=== PATIENT | female | born 1980 | race American Indian/Alaskan Native ===

== ENCOUNTER 2017-12-07 12:57 | Emergency (ER) | payer MEDICAID, MEDICARE ==
[2017-12-07 13:07] VITALS: BMI 38.2
[2017-12-07 13:17] VITALS: TEMP 98.1
[2017-12-07 15:49] LABS: BASO # 0.1 K/uL (0.0-0.2); BASO % 1.3 % (0.0-2.0); EOS # 0.1 K/uL (0.0-0.7); EOS % 1.8 % (0.0-4.0); HEMOGLOBIN 12.1 g/dL (11.0-16.0); LYMPH # 1.5 K/uL (1.0-4.3); LYMPH % 25.8 % (20.0-40.0); MEAN CELL VOLUME 75.6 fL (81.0-99.0); MEAN CORPUSCULAR HEMOGLOBIN 24.3 pg (27.0-31.0); MEAN CORPUSCULAR HGB CONC 32.1 g/dL (33.0-37.0); MEAN PLATELET VOLUME 8.3 fL (7.2-11.7); MONO # 0.4 K/uL (0.0-0.8); MONO % 7.5 % (0.0-10.0); NEUT # 3.6 K/uL (1.8-7.0); NEUT % 63.6 % (50.0-75.0); RBC 4.97 Mil/uL (3.80-5.20); RED CELL DISTRIBUTION WIDTH 14.8 % (11.5-14.5); WHITE BLOOD COUNT 5.7 K/uL (4.8-10.8)
--- NOTE | 2017-12-07 15:52 | C.PDOC ---
History Of Present Illness Patient presents to ED c/o left sided chest pain/pressure, left arm sharp pain radiating to thumb, and left neck pain since yesterday. She denies SOB, cough, fever, abdominal pain, nausea/vomiting/diarrhea. Patient has PMHx of PCOS, malignant thymoma diagnosed approx 5 years ago s/p resection and radiation ( most recent surgery Oct 2017 - Lisa). Time Seen by Provider: 12/07/17 14:13 Chief Complaint (Nursing): Chest Pain History Per: Patient History/Exam Limitations: no limitations Onset/Duration Of Symptoms: Days Current Symptoms Are (Timing): Still Present Severity: Mild Quality: "Pain" Exacerbating Factors: Movement Past Medical History Reviewed: Historical Data, Nursing Documentation, Vital Signs Vital Signs: Last Vital Signs Temp 98.1 F 12/07/17 13:13 Pulse 90 12/07/17 13:13 Resp 18 12/07/17 13:13 BP 122/84 12/07/17 13:13 Pulse Ox 99 12/07/17 16:00 - Medical History Other PMH: PCOS, malignant thymoma Other Surgeries: sternotomy Family History: States: No Known Family Hx - Social History Hx Alcohol Use: No Hx Substance Use: No - Immunization History Hx Tetanus Toxoid Vaccination: No Hx Influenza Vaccination: Yes Hx Pneumococcal Vaccination: No Review Of Systems Except As Marked, All Systems Reviewed And Found Negative. Cardiovascular: Positive for: Chest Pain. Negative for: Palpitations Respiratory: Negative for: Cough, Shortness of Breath Gastrointestinal: Negative for: Nausea, Vomiting, Abdominal Pain Skin: Negative for: Rash Physical Exam - Physical Exam Appears: Well, Non-toxic, Other (in mild pain, speaking in full sentences ) Eye(s): bilateral: Normal Inspection Oral Mucosa: Moist Chest: Other (midline sternotomy scar) Cardiovascular: Rhythm Regular Respiratory: Normal Breath Sounds, No Rales, No Rhonchi, No Wheezing Gastrointestinal/Abdominal: Normal Exam, Bowel Sounds, Soft, No Tenderness Extremity: Normal ROM, No Pedal Edema, No Calf Tenderness, Other (left shoulder mild TTP at anterior aspect) Neurological/Psych: Oriented x3 ED Course And Treatment - Laboratory Results Result Diagrams: 12/07/17 15:43 12/07/17 15:43 O2 Sat by Pulse Oximetry: 99 Disposition Counseled Patient/Family Regarding: Diagnosis, Need For Followup, Rx Given - Disposition Referrals: [facility] [Outside] Disposition: HOME/ ROUTINE Disposition Time: 18:30 Condition: STABLE Additional Instructions: FOLLOW UP WITH YOUR DOCTOR IN 1-2 DAYS USE MEDICATION NEEDED RETURN TO ER IF SYMPTOMS WORSEN Prescriptions: RX: Cyclobenzaprine [Flexeril] 10 mg PO BID PRN #20 tab PRN Reason: Muscle Spasm Instructions: Radiculopathy (DC) Forms: [employer] (Swedish) Print Language: HONDURAN - POA Present On Arrival: None - Clinical Impression Clinical Impression: Cervical radiculopathy, Adrenal nodule
[2017-12-07 15:56] LABS: INR 1.1; PROTHROMBIN TIME 12.2 SECONDS (9.7-12.2)
[2017-12-07 16:01] LABS: ALB/GLOB RATIO 1.2 (1.0-2.1); ALBUMIN 4.1 g/dL (3.5-5.0); ALT/SGPT 17 U/L (9-52); AST/SGOT 17 U/L (14-36); BLOOD UREA NITROGEN 10 mg/dL (7-17); CALCIUM 9.2 mg/dl (8.6-10.4); GFR AFRICAN-AMERICAN > 60; GFR NON-AFRICAN AMERICAN > 60
[2017-12-07 16:15] LABS: CK-MB 0.36 ng/mL (0.0-3.38)
[2017-12-07] MEDS ORDERED: Iodixanol 320 MG/ML 100 ML BOTTLE IV ONE (16:25)
--- NOTE | 2017-12-07 18:21 | CT ---
PROCEDURE: CT Chest with contrast (Pulmonary Angiogram) HISTORY: Left-sided chest pain. History of malignancy ; rule out PE. COMPARISON: Comparison made with prior chest radiograph dated 11/18/2012. TECHNIQUE: Axial computed tomography images were obtained of the chest in the pulmonary arterial phase of enhancement. Coronal and sagittal reformatted images were created and reviewed. Intravenous contrast dose: 100 cc Visipaque 320 contrast material. Radiation dose: Total exam DLP = 502.25 mGy-cm. This CT exam was performed using one or more of the following dose reduction techniques: Automated exposure control, adjustment of the mA and/or kV according to patient size, and/or use of iterative reconstruction technique FINDINGS: PULMONARY ARTERIES: The at visualized pulmonary trunk, right and left main, lobar, segmental and proximal side segmental branches of the pulmonary arteries are well opacified with no definitive filling defects seen to suggest acute pulmonary embolus. Pulmonary trunk measures approximately 2.8 cm. AORTA: No acute findings. No thoracic aortic aneurysm. Ascending thoracic aorta measures approximately 2.9 cm and descending thoracic aorta measures approximately 2.4 cm. LUNGS: Postoperative changes left upper lung apex/ upper lobe abutting the left aspect of the upper mediastinum likely representing sequela of prior upper partial lobectomy. There is volume loss left godwin thorax compared the right side with areas of scarring/chronic atelectasis in the left medial upper lobe ; findings consistent with postsurgical sequela and probably sequela of radiotherapy. Linear areas of atelectasis/scarring seen in the left lung base and lingular region. There is a small approximately 3.9 mm nodule left lung apex seen on axial series 16.-17. Additionally, there is a tiny nodule measuring approximately 2.75 mm right lung apex seen on axial series 3 image number 21. Slight shift of the mediastinum from right to left. Follow-up CT scan in three months recommended to assess any changes. Elevation left hemidiaphragm felt to be postsurgical due to volume loss left hemithorax. There is mild compensatory hyperinflation right lung. PLEURAL SPACES: Unremarkable. No effusion or pneumothorax. HEART: Heart size borderline/mildly enlarged. . No significant pericardial effusion. LYMPH NODES: No significant mediastinal or hilar adenopathy. No BONES, CHEST WALL: Median sternotomy. Minor multilevel degenerative spondylosis of the thoracic spine. There are no acute compression fractures no retropulsed fragments. No suspicious lytic or blastic lesions are identified within the visualized vertebral bodies. OTHER FINDINGS: Nodular left adrenal nodule measuring approximately 17 mm. Consider followup of pre and post-contrast MRI of the adrenal glands recommended given the patient's history of prior malignancy. IMPRESSION: No evidence of acute central pulmonary embolus. . . Postoperative changes left medial upper lung field abutting the mediastinum. Bilateral apical nodules as above. Recommend followup CT scan 3 months to assess stability. Mild scarring/atelectasis left lung base and left lingular region. . Marked elevation left hemidiaphragm with the slight shift of the mediastinum from right to left due to volume loss left godwin thorax. Mild compensatory overinflation right lung. Small approximately 17 mm left adrenal nodule. Recommend followup of pre and post-contrast MRI given the patient's history of malignancy. Findings discussed with Dr. Angel at approximately 6:15 p.m. with written down and read back verification.
[2017-12-07 18:41] VITALS: BP 115/79; PULSE 78; RESP 16; O2SAT 98
--- NOTE | 2017-12-10 12:52 | CARD ---
APPROVED REPORT EKG Measurement Heart [id number] OR [id number] <Conclusion> Normal sinus rhythm Left atrial enlargement Left ventricular hypertrophy Abnormal QRS-T angle, consider primary T wave abnormality Abnormal ECG
== END 2017-12-07 18:41 | disposition home or self-care (01) ==
LOC: C.ER 12:57
DX: M54.12 Radiculopathy, cervical region (principal); E27.9 Disorder of adrenal gland, unspecified; Z85.238 Personal history of other malignant neoplasm of thymus
CPT/HCPCS: 71275; 80053; 82550; 82553; 84484; 85025; 85610; 85730; 93005; 96374; 99283; J1885; Q9967